=== PATIENT | female | born 1990 ===

== ENCOUNTER 2018-12-28 11:54 | Emergency (ER) | payer SELFPAY ==
[2018-12-28 12:50] VITALS: RESP 16
--- NOTE | 2018-12-28 14:54 | US ---
Date of service: 12/28/2018 PROCEDURE: OB Pelvic Ultrasound HISTORY: LLQ pain, + preg beta HCG greater than 15,000 LMP: 09/24/2018 COMPARISON: None available. FINDINGS: UTERUS: Gestational sac: A single present mean sac diameter 2.9 cm corresponding to 7 weeks 6 days. Heart rate: 161 bpm. age (Ultrasound estimated): 7 weeks 5 days +/-0 weeks 4 days Lyric-gestational hemorrhage: None. Date of delivery (Ultrasound estimated) : 08/11/2019 Uterus measures 8.8 x 5.9 x 5.8 cm. Normal in size and anteverted appearance. CERVIX: Measures 3.5 cm. Long and closed. No cervical abnormality seen. RIGHT OVARY: Measures 2.8 x 1.9 x 1.9 cm. No mass lesion. Normal flow. LEFT OVARY: Measures 3.1 x 1.4 x 2.1 cm. No solid mass. Normal flow. FREE FLUID: None. OTHER FINDINGS: None. IMPRESSION: Single intrauterine gestation with cardiac activity. The menstrual age by these ultrasound parameters is 7 weeks 5 days +/-0 weeks 4 days gestation No perigestational hemorrhage seen. Clinical dates are 13 weeks 4 days. The clinical and sonographic ages are discordant.
--- NOTE | 2018-12-28 16:04 | ED PDOC ---
HPI: Female Pain Time Seen by Provider: 12/28/18 12:31 Chief Complaint (Nursing): Abdominal Pain Chief Complaint (Provider): abdominal pain History Per: Patient History/Exam Limitations: no limitations Additional Complaint(s): 28 y/o F with no significant PMH who presents with LLQ abdominal pain and possible . Pt states that she took a home test about 4 weeks ago that was + for . She has been having some nausea since then but no vomiting. However, she developed LLQ intermittent abdominal pain about 3 days ago. Denies fever, diarrhea, vomiting, dizziness, vaginal bleeding, abnormal va ginal discharge or dysuria. Last BM was 3 days ago. She states that her LMP was 09/24/18 but that she normally has very irregular periods so she is unsure of exactly how far along she is. 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: [id number] Past Medical History Reviewed: Historical Data, Nursing Documentation, Vital Signs Vital Signs: Last Vital Signs Temp 98.4 F 12/28/18 12:06 Pulse 72 12/28/18 13:31 Resp 16 12/28/18 12:06 BP 127/77 12/28/18 12:06 Pulse Ox 100 12/28/18 13:31 - Medical History PMH: No Chronic Diseases - Surgical History Surgical History: Appendectomy - Family History Family History: States: Unknown Family Hx - Immunization History Hx Tetanus Toxoid Vaccination: No Hx Influenza Vaccination: No Hx Pneumococcal Vaccination: No - Home Medications Home Medications: Ambulatory Orders Medication Instructions Recorded Polyethylene Glycol 3350 [Miralax] 17 gm PO DAILY PRN 7 Days ml 12/28/18 - Allergies Allergies/Adverse Reactions: Allergies Allergy/AdvReac Type Severity Reaction Status Date / Time No Known Allergies Allergy Verified 12/28/18 12:05 Review of Systems Constitutional: Negative for: Fever, Chills Gastrointestinal: Positive for: Nausea, Abdominal Pain, Constipation. Negative for: Vomiting, Diarrhea Genitourinary Female: Negative for: Dysuria, Frequency Physical Exam - Reviewed Nursing Documentation Reviewed: Yes Vital Signs Reviewed: Yes - Physical Exam Appears: Positive for: Non-toxic Cardiovascular/Chest: Positive for: Regular Rate, Rhythm Respiratory: Positive for: Normal Breath Sounds Gastrointestinal/Abdominal: Positive for: Tenderness (LLQ tenderness on palpation). Negative for: Distended, Guarding, Rebound Neurological/Psych: Positive for: Awake, Alert, Oriented - Laboratory Results Lab Results: Beta HCG, Quant 047248.00 mIU/mL 12/28/18 13:44 - ECG O2 Sat by Pulse Oximetry: 100 Medical Decision Making Medical Decision Making: Transvaginal U/S Beta HCG Quantitative Urine dip, urine culture Urine preg Transvaginal U/S: Single intrauterine gestation with cardiac activity. The menstrual age by these ultrasound parameters is 7 weeks 5 days +/-0 weeks 4 days gestation No perigestational hemorrhage seen. Clinical dates are 13 weeks 4 days. The clinical and sonographic ages are discordant. HCG: > 150,000 Urine dip: slightly cloudy, blood: neg; LE: neg; nitrate: neg Results explained using 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 [id number]. Pt advised to take Miralax for constipation and increase oral hydration. Return instructions given. Disposition - Clinical Impression Clinical Impression: Abdominal pain during , Constipation during - Patient ED Disposition Is Patient to be Admitted: No Counseled Patient/Family Regarding: Studies Performed, Diagnosis, Need For Followup, Rx Given - Disposition [facility] Disposition: Routine/Home Disposition Time: 16:15 Condition: STABLE Additional Instructions: Follow up with your [facility] machine for routine care as planned within the next 2 weeks. Return to ER if you start having vaginal bleeding, cramping or abnormal vaginal discharge. Take Miralax for constipation. Drink plenty of water and increase fiber in your diet. Take Tylenol for pain, no Ibuprofen/Aleve during . Prescriptions: Polyethylene Glycol 3350 [Miralax] 17 gm PO DAILY PRN 7 Days ml PRN Reason: Constipation Instructions: Constipation, Adult (DC), Stomach Pain in Early Forms: [facility] (Faroese) Print Language: IRISH
[2018-12-28 16:28] VITALS: BP 107/61; PULSE 74; TEMP 99; O2SAT 97
== END 2018-12-28 16:28 | disposition home or self-care (01) ==
LOC: H.ER 11:54
DX: N92.6 Irregular menstruation, unspecified (principal); O26.91 Pregnancy related conditions, unspecified, first trimester; R10.2 Pelvic and perineal pain; O99.611 Diseases of the digestive system complicating pregnancy, first trimester; K59.00 Constipation, unspecified; Z3A.13 13 weeks gestation of pregnancy

== ENCOUNTER 2019-01-20 14:02 | Emergency (ER) | payer OTHER ==
[2019-01-20 14:25] VITALS: O2SAT 100
[2019-01-20] MEDS ORDERED: Sodium Chloride 0.9% 1,000 ML IV STA (14:46)
--- NOTE | 2019-01-20 14:50 | ED PDOC ---
HPI: Abdomen Time Seen by Provider: 01/20/19 14:40 Chief Complaint (Nursing): Abdominal Pain History Per: Patient Onset/Duration Of Symptoms: Days (2) Current Symptoms Are (Timing): Still Present Severity: Moderate Location Of Pain/Discomfort: Epigastric Quality Of Discomfort: Sharp Associated Symptoms: Nausea. denies: Fever, Vomiting, Diarrhea, Urinary Symptoms Exacerbating Factors: None Alleviating Factors: None Additional Complaint(s): Sharp epigastric pain x 2 days assoc with nauseaq but no vomniting. Denies fever. denies vaginal bleeding ot lower abd pain. H/o gastritis. Improves with ranitidine. Past Medical History Vital Signs: Last Vital Signs Temp 98.6 F 01/20/19 14:23 Pulse 90 01/20/19 14:23 Resp 20 01/20/19 14:23 BP 129/75 01/20/19 14:23 Pulse Ox 100 01/20/19 14:23 - Medical History PMH: Gastritis - Surgical History Surgical History: Appendectomy - Family History Family History: States: Unknown Family Hx - Immunization History Hx Tetanus Toxoid Vaccination: No Hx Influenza Vaccination: No Hx Pneumococcal Vaccination: No - Home Medications Home Medications: Ambulatory Orders Medication Instructions Recorded Polyethylene Glycol 3350 [Miralax] 17 gm PO DAILY PRN 7 Days ml 12/28/18 - Allergies Allergies/Adverse Reactions: Allergies Allergy/AdvReac Type Severity Reaction Status Date / Time No Known Allergies Allergy Verified 12/28/18 12:05 Review of Systems ROS Statement: Except As Marked, All Systems Reviewed And Found Negative Gastrointestinal: Positive for: Nausea, Abdominal Pain. Negative for: Vomiting, Diarrhea Genitourinary Female: Negative for: Vaginal Bleeding Physical Exam - Reviewed Nursing Documentation Reviewed: Yes Vital Signs Reviewed: Yes - Physical Exam Appears: Positive for: Non-toxic, No Acute Distress Head Exam: Positive for: ATRAUMATIC, NORMAL INSPECTION, NORMOCEPHALIC Skin: Positive for: Normal Color, Warm, DRY Eye Exam: Positive for: EOMI, Normal appearance, PERRL ENT: Positive for: Normal ENT Inspection Neck: Positive for: Normal, Painless ROM Cardiovascular/Chest: Positive for: Regular Rate, Rhythm Respiratory: Positive for: CNT, Normal Breath Sounds Gastrointestinal/Abdominal: Positive for: Soft, Tenderness (epigastric) Back: Positive for: Normal Inspection Extremity: Positive for: Normal ROM Neurological/Psych: Positive for: Awake, Alert, Normal Tone - Laboratory Results Result Diagrams: 01/20/19 15:00 - ECG O2 Sat by Pulse Oximetry: 100 Disposition - Clinical Impression Clinical Impression: Gastritis - Patient ED Disposition Is Patient to be Admitted: Transfer of Care - Disposition Disposition: Transfer of Care Disposition Time: 15:18 Condition: FAIR Forms: [employer] (Belarusian) Patient Signed Over To: Shasha Duncan (Pending labs and reeval and US)
[2019-01-20 15:13] LABS: BASO % 0.3 % (0.0-2.0); EOS # 0.1 K/uL (0.0-0.7); EOS % 1.5 % (0.0-4.0); HEMOGLOBIN 12.8 g/dL (12.0-16.0); LYMPH # 1.9 K/uL (1.0-4.3); LYMPH % 23.9 % (20.0-40.0); MEAN CORPUSCULAR HEMOGLOBIN 30.6 pg (27.0-31.0); MEAN CORPUSCULAR HGB CONC 34.4 g/dL (33.0-37.0); MEAN PLATELET VOLUME 7.4 fl (7.2-11.7); MONO # 0.7 K/uL (0.0-0.8); MONO % 9.1 % (0.0-10.0); NEUT # 5.2 K/uL (1.8-7.0); NEUT % 65.2 % (50.0-75.0); NRBC % 0.1 % (0.0-0.0); RBC 4.19 Mil/uL (3.80-5.20); RED CELL DISTRIBUTION WIDTH 13.2 % (11.5-14.5)
[2019-01-20 15:27] LABS: ALB/GLOB RATIO 1.2 (1.0-2.1); ALT/SGPT 29 U/L (9-52); AST/SGOT 29 U/L (14-36); BLOOD UREA NITROGEN 6 mg/dl (7-17); CALCIUM 8.9 mg/dL (8.4-10.2); GFR NON-AFRICAN AMERICAN > 60
--- NOTE | 2019-01-20 16:31 | ED PDOC ---
- Laboratory Results Result Diagrams: 01/20/19 15:00 01/20/19 15:00 Lab Results: Total Bilirubin 0.1 mg/dl (0.2-1.3) L 01/20/19 15:00 AST 29 U/L (14-36) 01/20/19 15:00 ALT 29 U/L (9-52) 01/20/19 15:00 Alkaline Phosphatase 75 U/L (38-126) 01/20/19 15:00 Total Protein 7.3 G/DL (6.3-8.2) 01/20/19 15:00 Albumin 4.0 g/dL (3.5-5.0) 01/20/19 15:00 Globulin 3.4 gm/dL (2.2-3.9) 01/20/19 15:00 Albumin/Globulin Ratio 1.2 (1.0-2.1) 01/20/19 15:00 Beta HCG, Quant 045501.00 mIU/mL 01/20/19 15:00 - ECG O2 Sat by Pulse Oximetry: 100 - Progress ED Course And Treament: 320p Rec'd endorsement from Dr Campbell. Pt with epigastric pain and 11 weeks pr egnant. Pending ER workup, US, reassesment and final ER disposition. Accession No. : [id number] Patient Name / ID : BECERRIL / [id number] Exam Date : 01/20/2019 17:25:55 ( Approved ) Study Comment : Sex / Age : F / 29Y Creator : Felicity Mondragon MD Dictator : Feilcity Mondragon MD Nurse Charge Rn : [employer] Blocker : Felicity Mondragon MD Approver2 : Report Date : 01/20/2019 17:55:47 My Comment : Date of service: 01/20/2019 PROCEDURE: OB Pelvic Ultrasound HISTORY: abd pain LMP: 09/24/2018 COMPARISON: None available. FINDINGS: UTERUS: Gestational sac: Single live intrauterine gestation. Gestational sac diameter measures 5.91 cm corresponding to 12 weeks and 0 day of gestational age. Yolk sac is visualized. CRL measures 4.58 cm corresponding to 11 weeks and 3 days of gestational age. Heart rate: 167 bpm. age (Ultrasound estimated): 11 weeks and 4 days Lyric-gestational hemorrhage: None. Date of delivery (Ultrasound estimated) : 08/07/2019 Uterus measures 12.9 x 8.2 cm. Normal in size and appearance. CERVIX: Measures 3.9 cm. Long and closed. No cervical abnormality seen. RIGHT OVARY: Not visualized. LEFT OVARY: Not visualized. FREE FLUID: None. OTHER FINDINGS: None. IMPRESSION: Single live intrauterine gestation with mean gestational age of 11 weeks and 3 days. The estimated date of delivery by ultrasound is 08/07/2019. There is a discrepancy with the clinical dates. Clinical follow-up is advised. Labs with no emergently significant abnormalities. LATONIA pt findings and plan of care. Stable for discharge Disposition Counseled Patient/Family Regarding: Studies Performed, Diagnosis, Need For Followup, Rx Given - Clinical Impression Clinical Impression: Gastritis - POA Present On Arrival: None - Disposition Disposition: Routine/Home Disposition Time: 18:18 Condition: STABLE Additional Instructions: VISITA LEE DOCTOR PROXIMA SEMANA A CHEQAR DE NUEVO Prescriptions: Famotidine [Pepcid] 40 mg PO DAILY PRN #30 tab PRN Reason: reflux Sucralfate [Carafate Tab] 1 gm PO Q6 PRN #30 tab PRN Reason: ABDOMINAL PAIN Instructions: Gastritis (DC) Print Language: [email or web address]
--- NOTE | 2019-01-20 17:59 | US ---
Date of service: 01/20/2019 PROCEDURE: OB Pelvic Ultrasound HISTORY: abd pain LMP: 09/24/2018 COMPARISON: None available. FINDINGS: UTERUS: Gestational sac: Single live intrauterine gestation. Gestational sac diameter measures 5.91 cm corresponding to 12 weeks and 0 day of gestational age. Yolk sac is visualized. CRL measures 4.58 cm corresponding to 11 weeks and 3 days of gestational age. Heart rate: 167 bpm. age (Ultrasound estimated): 11 weeks and 4 days Lyric-gestational hemorrhage: None. Date of delivery (Ultrasound estimated) : 08/07/2019 Uterus measures 12.9 x 8.2 cm. Normal in size and appearance. CERVIX: Measures 3.9 cm. Long and closed. No cervical abnormality seen. RIGHT OVARY: Not visualized. LEFT OVARY: Not visualized. FREE FLUID: None. OTHER FINDINGS: None. IMPRESSION: Single live intrauterine gestation with mean gestational age of 11 weeks and 3 days. The estimated date of delivery by ultrasound is 08/07/2019. There is a discrepancy with the clinical dates. Clinical follow-up is advised.
[2019-01-20 18:40] VITALS: BP 120/70; PULSE 76; RESP 15; TEMP 98.1
== END 2019-01-20 18:25 | disposition home or self-care (01) ==
LOC: H.ER 14:02
DX: O99.611 Diseases of the digestive system complicating pregnancy, first trimester (principal); K29.70 Gastritis, unspecified, without bleeding; Z3A.11 11 weeks gestation of pregnancy
CPT/HCPCS: 76815; 80053; 84702; 85025; 86850; 86900; 96374; 99283; J7030

== ENCOUNTER 2019-03-03 12:03 | Emergency (ER) | payer SELFPAY ==
[2019-03-03 20:53] VITALS: BP 112/70; PULSE 84; RESP 18; TEMP 98.3
== END 2019-03-03 12:45 | disposition home or self-care (01) ==
LOC: H.EROB2 12:03 → H.L&D 12:18 → H.EROB2 12:45
DX: O20.9 Hemorrhage in early pregnancy, unspecified (principal); Z3A.17 17 weeks gestation of pregnancy; O26.92 Pregnancy related conditions, unspecified, second trimester; M54.5 Low back pain